=== PATIENT | male | born 1960 | race Caucasian/White ===

== ENCOUNTER 2024-06-26 14:57 | Emergency (ER) | payer MEDICARE, SELFPAY ==
[2024-06-26 15:03] VITALS: BP 175/115
[2024-06-26 15:23] LABS: % Basophils 0.4 % (0-2); % Eosinophils 0.4 % (0-6); % Immature Granulocytes 0.3 % (0-0.5); % Monocytes 7.7 % (1.7-9.3); % Neutrophils 72.2 % (42.2-75.2); Absolute Lymphocytes 1.7 10^3/uL (1.2-3.4); Absolute Monocytes 0.7 10^3/uL (0.1-0.6); Absolute Neutrophils 6.5 10^3/uL (1.4-6.5); Hematocrit 51.2 % (39.0-52.0); Hemoglobin 17.3 g/dL (13.0-18.0); Mean Corp Hgb Conc. 33.8 g/dL (33.0-37.0); Mean Corpuscular Hgb 31.2 pg (27.0-31.0); Mean Corpuscular Volume 92.4 fL (80.0-94.0); Mean Platelet Volume 9.9 fL (7.4-10.4); Nucleated Red Blood Cells % 0 % (-); Platelet Count 241 10^3/uL (130-400); Red Blood Cell Count 5.54 10^6/uL (4.70-6.10); Red Cell Dist. Width 13.6 % (11.5-14.5); White Blood Cell Count 9.1 10^3/uL (4.8-10.8)
[2024-06-26 15:38] LABS: ALT (SGPT) < 10 U/L (0-50); AST (SGOT) 34 U/L (17-59); Albumin 4.7 g/dl (3.5-5.0); Alkaline Phosphatase 84 U/L (38-126); Blood Urea Nitrogen 33 mg/dl (9-20); Calcium 10.1 mg/dl (8.4-10.2); Carbon Dioxide 27 mmol/L (22-30); Chloride 105 mmol/L (98-107); Glucose 117 mg/dl (70-99); Lipase 57 U/L (23-300); Potassium 4.4 mmol/L (3.5-5.1); Sodium 139 mmol/L (135-145); Total Bilirubin 0.8 mg/dl (0.2-1.3); Total Protein 7.6 g/dl (6.3-8.2); eGFR > 60.00
--- NOTE | 2024-06-26 17:03 | ED.GENMED ---
History of Present Illness
General
Chief Complaint: Abdominal Pain
Time Seen by Provider: 06/26/24 16:48
History of Present Illness
History of Present Illness:
64-year-old male history of Parkinson's, urinary retention presenting with nonradiating right lower quadrant starting around 230 this afternoon. Patient denies nausea, vomiting, diarrhea, dysuria or hematuria. Patient states that he had multiple
normal bowel movements after pain started. Patient reports history of kidney stones, states that this feels different.
Phy Exam
Physical Exam
Physical Exam:
General: Alert, no acute distress
Head: NCAT
Eyes: clear conjunctiva
Neck: supple
Cardiac: regular rate and rhythm, no murmur
Lungs: clear to auscultation bilaterally. No wheezes, rales, or rhonchi. Speaking full unlabored sentences. No respiratory distress.
Abdomen: soft, nondistended right lower quadrant tenderness. No rebound or guarding. No CVA tenderness bilateral
MSK: no lower extremity edema bilaterally. No deformity
Skin: warm, dry
Neuro: Alert and oriented x3. no focal deficits
Course
Orders/Labs/Results
Orders:
Orders
06/26/24 15:14
Complete Blood Count/With Diff Urgent
Comprehensive Metabolic Panel Urgent
Lipase Urgent
06/26/24 17:03
CT Abd/pelvis W Iv Cont Urgent
Comment:
Reason For Exam: rlq tenderness
0.9% Sodium Chloride 1000 ml [Nss] 1,000 ml IV BOLUS
Ketorolac [Toradol] 15 mg IV NOW STA
06/26/24 17:24
UA Reflex to Culture [Urinalysis Reflex To Culture] Urgent
Date Specimen was Collected: 06/26/24
Time Specimen was Collected: 17:06
Urine Microscopic Reflex Cult Urgent
Urine Culture Urgent
LA Source: U
Specimen Description:
Date Specimen was Collected: 06/26/24
Time Specimen was Collected: 17:06
Abnormal Lab Results
06/26/24 06/26/24
15:14 17:24
MCH 31.2 H pg
(27.0-31.0)
Absolute Monos (auto) 0.7 H 10^3/uL
(0.1-0.6)
Lymphocytes % 19.0 L %
(20.5-51.1)
BUN 33 H mg/dl
(9-20)
Glucose 117 H mg/dl
(70-99)
Urine Ketones 1+ A
(Negative)
Ur Occult Blood Reflex 4+ A
(Negative)
Leukocyte Esterase Rfl 1+ A
(Negative)
Urine RBC 70-80 A /HPF
(0-2)
Urine Bacteria (Reflex) Few A
(Negative)
Urine Yeast Few A
(Negative)
Urine Albumin (Reflex) 2+ A
(Neg - Trace)
06/26/24 15:14
06/26/24 15:14
Vital Signs
Initial and Last Documented VS:
Initial Vital Signs
Temp Pulse Resp BP Pulse Ox
97.7 F 79 22 175/115 98
06/26/24 15:03 06/26/24 15:03 06/26/24 15:03 06/26/24 15:03 06/26/24 15:03
Last Documented Vital Signs
Temp Pulse Resp BP Pulse Ox
97.7 F 79 22 159/89 97
06/26/24 15:03 06/26/24 15:03 06/26/24 15:03 06/26/24 19:00 06/26/24 18:10
MDM/Problems Addressed
Differential Diagnosis Includes:
Appendicitis, diverticulitis, kidney stone, UTI
MDM/Problems Addressed:
64-year-old male presenting with right lower quadrant abdominal pain starting earlier today. Labs reviewed. WBC 9.1. Electrolytes, creatinine within normal limits. UA shows blood but no infection. CT abdomen pelvis reviewed. Significant for
Calculus at right UVJ with mild hydronephrosis. 2 bladder calculi measuring 12 mm. On reevaluation, patient reports resolution of pain. Abdomen soft nondistended nontender. Discussed results with patient at bedside. Suspect patient is already
passed stone at right UVJ given resolution of symptoms. Patient states that he has a urologist at [place]. Advised to follow-up with urology
*Critical Care Note
Total Time (30-74mins, 75-104mins- exclusive of procedures): Not Applicable
ED Attending Note
-
Portions of this chart may have been created with voice recognition software.� Occasional wrong word or��sound alike� substitutions may have occurred due to the inherent limitations of voice recognition software.
Discharge Plan
Departure
Patient Disposition: Home (Routine Discharge)
Date of Disposition: 06/26/24
Time of Disposition: 19:41
Patient with high blood pressure during this ER visit?: Yes
Discharge Problem:
Ureterolithiasis
Instructions: Kidney Stones (DC)
Referrals:
Cornelio Srivastava DO [Family Provider] -
Activity Restrictions/Additional Instructions:
Take Tylenol 975 mg every 6 hours and/or ibuprofen 800 mg every 8 hours if he is needed for pain
Follow-up with urology next week
Return to the emergency department for fever, burning with urination, or new/worsening symptoms
Interventions
Interventions:
*Risk Screen - Suicide Last Done: 06/26/24 15:03
*General Assessment Last Done: 06/26/24 15:03
*Neglect/Abuse Screening Last Done: 06/26/24 15:03
ED- Fall Risk Assessment Last Done: 06/26/24 17:28
*ED COVID-19 Vaccine History Last Done: 06/26/24 17:28
*Nursing Disposition Last Done: 06/26/24 20:05
AI-Iuafnp-Hcsughbjcf Assessment Last Done: 06/26/24 17:28
Discharge Date and Time
Discharge Date/Time: 06/26/24 20:07
Print Language: EGYPTIAN
[2024-06-26] MEDS: TORADOL 15 MG IV (17:15)
[2024-06-26] MEDS: NSS 1000 IV (17:15)
[2024-06-26 17:25] VITALS: BP 165/106
[2024-06-26 17:28] VITALS: BMI 29.6
[2024-06-26 18:00] VITALS: BP 170/93
[2024-06-26 18:30] LABS: Urine Albumin 2+ (Neg - Trace); Urine Bilirubin Negative (Negative); Urine Character Slightly Cloudy (Clear); Urine Color Amber; Urine Glucose Negative (Negative); Urine Ketone 1+ (Negative); Urine Leukocyte 1+ (Negative); Urine Nitrite Negative (Negative); Urine Occult Blood 4+ (Negative); Urine Urobilinogen Negative (Neg - 1+)
[2024-06-26 19:00] VITALS: BP 159/89
[2024-06-26 19:28] LABS: Urine Red Blood Cell 70-80 /HPF (0-2)
[2024-06-26 19:29] LABS: Urine Yeast Few (Negative)
[2024-06-26 19:30] LABS: Urine Bacteria Few (Negative)
[2024-06-26 20:15] LABS: Urine Squamous Cell 0-2 /LPF (Few)
== END 2024-06-26 20:07 | disposition home or self-care (01) ==
LOC: EMR 14:57
PROVIDERS: Emergency Medicine; EMERGENCY PHYSICIAN Emergency Medicine; FAMILY PHYSICIAN Family Medicine
DX: N13.2 Hydronephrosis with renal and ureteral calculous obstruction (principal); G20.A1 Parkinson's disease without dyskinesia, without mention of fluctuations; Z87.442 Personal history of urinary calculi
CPT/HCPCS: 99284; 96374; 96361; 74177; 80053; 81003; 81015; 83690; 85025; 87086; Q9967